=== PATIENT | female | born 1995 | race African-American/Black ===

== ENCOUNTER 2023-03-11 12:48 | Emergency (ER) | payer OTHER ==
[~2023-03-11] VITALS: Ht 167.6 cm; Wt 69.0 kg
[2023-03-11 12:52] VITALS: BP 111/61; PULSE 87; TEMP 98.9; O2SAT 99
[2023-03-11 15:50] LABS: HEMATOCRIT 30.3 % (36.0-48.0); HEMOGLOBIN 9.6 g/dL (12.0-16.0); MEAN CORPUSCULAR HEMOGLOBIN 20.7 pg (28.0-32.0); MEAN CORPUSCULAR HGB CONC 31.7 g/dL (31.0-37.0); MEAN CORPUSCULAR VOLUME 65.2 fL (81.0-99.0); PLATELET 392 x1000/uL (130-400); RED BLOOD CELL COUNT 4.65 mill/uL (4.2-5.4); RED CELL DISTRIBUTION WIDTH 25.2 % (11.6-14.6)
[2023-03-11 16:04] LABS: ALANINE AMINOTRANSFERASE 14 IU/L (10-49); ALBUMIN 4.3 g/dL (3.2-4.8); ASPARTATE AMINOTRANSFERASE 27 IU/L (<34); BILIRUBIN TOTAL 0.8 mg/dL (0.1-1.0); CALCIUM 9.3 mg/dL (8.7-10.4); CARBON DIOXIDE 25 mEq/L (21-32); CHLORIDE 105 mEq/L (98-107); CREATININE 0.7 mg/dL (0.6-1.0); GLUCOSE 88 mg/dL (70-105); PROTEIN TOTAL 6.9 g/dL (6.0-8.3); SODIUM 139 mEq/L (136-145); UREA NITROGEN BLOOD 13 mg/dL (9-23)
[2023-03-11 17:31] LABS: *AMPHETAMINES SCREEN URINE NEGATIVE (NEGATIVE); *BARBITURATES SCREEN URINE NEGATIVE (NEGATIVE); *BENZODIAZEPINES SCREEN URINE NEGATIVE (NEGATIVE); *COCAINE SCREEN URINE NEGATIVE (NEGATIVE); CANNABINOID URINE SCREEN PRESUMPTIVE POSITIVE (NEGATIVE); ECSTASY MDMA SCREEN URINE NEGATIVE (NEGATIVE); METHADONE URINE SCREEN Neg (NEGATIVE); OPIATES URINE SCREEN NEGATIVE (NEGATIVE); PHENCYCLIDINE URINE SCREEN NEGATIVE (NEGATIVE)
[2023-03-11] MEDS ORDERED: TOPUD PO (23:17)
== END 2023-03-11 21:10 | disposition left against medical advice (07) ==
LOC: ER 14:13
DX: S00.11XA Contusion of right eyelid and periocular area, initial encounter (principal); S40.012A Contusion of left shoulder, initial encounter; S60.211A Contusion of right wrist, initial encounter; S80.212A Abrasion, left knee, initial encounter; S80.211A Abrasion, right knee, initial encounter; Z98.890 Other specified postprocedural states; Y08.89XA Assault by other specified means, initial encounter; Y93.89 Activity, other specified; Y92.89 Other specified places as the place of occurrence of the external cause; Y99.8 Other external cause status
CPT/HCPCS: 36415; 71045; 73110; 74176; 80053; 80305; 81025; 85027; 87491; 87591; 99284

== ENCOUNTER 2023-03-11 22:43 | Emergency (ER) | payer OTHER ==
[~2023-03-11] VITALS: Ht 167.6 cm; Wt 69.0 kg
[2023-03-11 22:48] VITALS: BP 127/68; PULSE 96; RESP 16; TEMP 98.9; O2SAT 100
[2023-03-11] MEDS ORDERED: TOPUD PO (23:17)
[2023-03-11] MEDS ORDERED: ACETAMINOPHEN 325MG TABLET PO ONE (23:30)
== END 2023-03-12 00:15 | disposition home or self-care (01) ==
LOC: ER 22:43
DX: M79.10 Myalgia, unspecified site (principal)
CPT/HCPCS: 99281

== ENCOUNTER 2024-05-29 23:38 | Emergency (ER) | payer MEDICAID, OTHER ==
[~2024-05-29] VITALS: Ht 167.6 cm; Wt 66.0 kg
[~2024-05-29 23:38] MED LIST: TOPUD PO
[2024-05-30 00:35] VITALS: O2SAT 100
[2024-05-30] MEDS: ONDANSETRON HCL 4MG TABLET PO ONE (01:28)
[2024-05-30] MEDS: KETOROLAC 15MG/ML VIAL IM ONE (01:28)
[2024-05-30] MEDS ORDERED: GUAI-450 MT (01:37)
[2024-05-30 01:51] VITALS: BP 127/73; PULSE 101; RESP 18; TEMP 36.8; O2SAT 100
== END 2024-05-30 01:52 | disposition home or self-care (01) ==
LOC: ER 23:38
DX: B34.9 Viral infection, unspecified (principal)
CPT/HCPCS: 81025; 99283; 71045; 96372; Q0162; J1885; Z7610

== ENCOUNTER 2024-10-13 12:43 | Emergency (ER) | payer MEDICAID ==
[~2024-10-13] VITALS: Ht 167.6 cm; Wt 69.0 kg
[~2024-10-13 12:43] MED LIST changes: +GUAI-450 MT
[2024-10-13 12:53] VITALS: O2SAT 96
[2024-10-13] MEDS: TETANUS, DIPHTHERIA, PERTUSSIS VAC/PF 0.5ML (>10YR OLD) IM ONE (15:06)
[2024-10-13] MEDS: KETOROLAC 30MG/ML VIAL IM ONE (15:07)
[2024-10-13] MEDS: ACETAMINOPHEN 325MG TABLET PO ONE (15:07)
[2024-10-13] MEDS: AMOXICILLIN/POTASSIUM CLAVULANATE 875/125MG TAB PO ONE (15:08)
[2024-10-13] MEDS ORDERED: AMOX1TAB16 MT (15:28)
[2024-10-13] MEDS ORDERED: NEOM28.43 TP (15:28)
[2024-10-13] MEDS ORDERED: NAPR-679 MT (15:28)
[2024-10-13 16:49] VITALS: BP 120/81; PULSE 74; RESP 16; TEMP 36.8; O2SAT 99
== END 2024-10-13 16:51 | disposition home or self-care (01) ==
LOC: ER 13:15
DX: S09.90XA Unspecified injury of head, initial encounter (principal); S61.452A Open bite of left hand, initial encounter; S61.451A Open bite of right hand, initial encounter; Z79.1 Long term (current) use of non-steroidal anti-inflammatories (NSAID); Z79.899 Other long term (current) drug therapy; Y04.1XXA Assault by human bite, initial encounter; Y93.89 Activity, other specified; Y92.89 Other specified places as the place of occurrence of the external cause; Y99.8 Other external cause status
CPT/HCPCS: 73030; 73100; 73130; 70450; 90715; 90471; 96372; 99285; J1885; Z7610